=== PATIENT | female | born 1985 | race Caucasian/White ===

== ENCOUNTER 2017-11-29 09:46 | Outpatient (CLI) | payer OTHER ==
[2017-11-29 11:11] LABS: MEAN CORPUSCULAR HEMOGLOBIN 30.5 pg (27.0-31.0); MEAN CORPUSCULAR HGB CONC 34.6 g/dL (32.0-36.0); MEAN CORPUSCULAR VOLUME 88.1 fL (81.0-99.0); MEAN PLATELET VOLUME 8.6 fL (7.9-10.8); RED BLOOD COUNT 4.25 10^6/uL (4.20-5.40); RED CELL DISTRIBUTION WIDTH 13.9 % (12.0-15.0); WHITE BLOOD COUNT 7.7 x10^3/uL (4.8-10.8)
== END 2017-11-29 09:47 | disposition home or self-care (01) ==
LOC: LAB 09:46
PROVIDERS: ATTEND Nurse Practitioner Obstetrics & Gynecology
DX: Z36.9 Encounter for antenatal screening, unspecified (principal)
CPT/HCPCS: 36415; 82950; 86850

== ENCOUNTER 2018-01-10 08:00 | Outpatient (CLI) | payer OTHER | END 2018-01-10 08:01 | LOC: LAB.R 08:00 | PROVIDERS: ATTEND Registered Nurse | DX: Z34.83 Encounter for supervision of other normal pregnancy, third trimester (principal) | CPT/HCPCS: 87077; 87081 ==

== ENCOUNTER 2018-01-24 11:37 | Outpatient (CLI) | payer OTHER ==
[2018-01-24 12:19] LABS: BASOPHILS % (AUTO) 0.4 %; EOSINOPHILS # (AUTO) 0.2 10^3/uL (0.0-0.7); EOSINOPHILS % (AUTO) 2.2 %; HGB - HEMOGLOBIN 12.6 g/dL (12.0-16.0); LYMPHOCYTES # (AUTO) 1.4 10^3/uL (1.5-3.5); LYMPHOCYTES % (AUTO) 18.6 %; MEAN CORPUSCULAR HEMOGLOBIN 30.8 pg (27.0-31.0); MEAN CORPUSCULAR HGB CONC 34.5 g/dL (32.0-36.0); MEAN CORPUSCULAR VOLUME 89.5 fL (81.0-99.0); MONOCYTES # (AUTO) 0.6 10^3/uL (0.0-1.0); MONOCYTES % (AUTO) 7.6 %; NEUTROPHILS # (AUTO) 5.5 10^3/uL (1.5-6.6); NEUTROPHILS % (AUTO) 71.2 %; PLT - PLATELET COUNT 153 10^3/uL (130-450); RED BLOOD COUNT 4.08 10^6/uL (4.20-5.40); RED CELL DISTRIBUTION WIDTH 14.1 % (12.0-15.0); WHITE BLOOD COUNT 7.7 x10^3/uL (4.8-10.8)
[2018-01-24 12:23] LABS: CREATININE 0.6 mg/dL (0.4-1.0)
[2018-01-24 12:25] LABS: URIC ACID 3.5 mg/dL (2.6-7.2)
[2018-01-24 12:47] LABS: CREATININE,URINE 73.3 mg/dL; PROTEIN/CREATININE RATIO,URINE 0.1 (<=0.2)
[2018-01-24 16:04] VITALS: BP 93/71
== END 2018-01-24 12:55 | disposition home or self-care (01) ==
LOC: WFO 11:37 → FBP 11:38 → WFO 12:55
PROVIDERS: ATTEND Registered Nurse
DX: O16.3 Unspecified maternal hypertension, third trimester (principal); Z3A.37 37 weeks gestation of pregnancy
CPT/HCPCS: 36415; 59025; 82565; 82570; 83615; 84156; 84450; 84550; 85025

== ENCOUNTER 2018-02-04 00:42 | Outpatient (CLI) | payer OTHER ==
[2018-02-04 03:02] VITALS: BP 102/61
== END 2018-02-04 03:09 | disposition home or self-care (01) ==
LOC: WFO 00:42 → FBP 00:44 → WFO 03:09
PROVIDERS: ATTEND Registered Nurse
DX: O36.8130 Decreased fetal movements, third trimester, not applicable or unspecified (principal); Z3A.39 39 weeks gestation of pregnancy
CPT/HCPCS: 99213

== ENCOUNTER 2018-02-05 16:32 | Outpatient (CLI) | payer OTHER ==
[2018-02-05 17:18] VITALS: BP 113/79
[2018-02-05 17:40] LABS: RUPTURE OF MEMBRANES PLUS NEGATIVE (NEGATIVE)
== END 2018-02-05 18:15 | disposition home or self-care (01) ==
LOC: WFO 16:32 → FBP 16:34 → WFO 18:15
PROVIDERS: ATTEND Registered Nurse
DX: O47.1 False labor at or after 37 completed weeks of gestation (principal); Z3A.39 39 weeks gestation of pregnancy
CPT/HCPCS: 84112; 99213

== ENCOUNTER 2018-02-05 21:33 | Inpatient (IN) | payer OTHER ==
[2018-02-05] MEDS ORDERED: PENICILLIN G POTASSIUM 5,000,000 UNIT in SODIUM CHLORIDE 0.9% MINIBAG 100 ML IV ONE (21:54)
[2018-02-05] MEDS ORDERED: OXYTOCIN/SODIUM CHLORIDE 250 ML IV ONE (21:54)
[2018-02-05] MEDS ORDERED: ONDANSETRON 4 MG/2 ML VIAL IVP PRN (21:54)
[2018-02-05] MEDS ORDERED: SODIUM CHLORIDE FLUSH 0.9% 10 ML SYRINGE IVP PRN (21:54)
[2018-02-05] MEDS ORDERED: fentaNYL 100 MCG/2 ML VIAL IVP PRN (21:54)
[2018-02-05] MEDS ORDERED: LACTATED RINGERS 1,000 ML IV SCH (22:00)
[2018-02-05] MEDS ORDERED: LACTATED RINGERS 1,000 ML IV ONE (22:05)
[2018-02-05 22:18] LABS: BASOPHILS % (AUTO) 0.3 %; EOSINOPHILS # (AUTO) 0.2 10^3/uL (0.0-0.7); EOSINOPHILS % (AUTO) 1.8 %; HGB - HEMOGLOBIN 12.8 g/dL (12.0-16.0); LYMPHOCYTES # (AUTO) 1.4 10^3/uL (1.5-3.5); MEAN CORPUSCULAR HEMOGLOBIN 31.2 pg (27.0-31.0); MEAN CORPUSCULAR HGB CONC 34.7 g/dL (32.0-36.0); MEAN PLATELET VOLUME 8.7 fL (7.9-10.8); MONOCYTES # (AUTO) 0.6 10^3/uL (0.0-1.0); MONOCYTES % (AUTO) 6.7 %; NEUTROPHILS # (AUTO) 6.8 10^3/uL (1.5-6.6); NEUTROPHILS % (AUTO) 75.2 %; PLT - PLATELET COUNT 155 10^3/uL (130-450); RED BLOOD COUNT 4.09 10^6/uL (4.20-5.40); RED CELL DISTRIBUTION WIDTH 14.5 % (12.0-15.0)
[2018-02-06] MEDS ORDERED: SODIUM CHLORIDE FLUSH 0.9% 10 ML SYRINGE IVP SCH (01:00)
[2018-02-06] MEDS ORDERED: PENICILLIN G POTASSIUM 2,500,000 UNIT in SODIUM CHLORIDE 0.9% 100ML 100 ML IV SCH (02:00)
--- NOTE | 2018-02-06 03:38 | HISTORY & PHYSICAL EXAMINATION ---
Admit History - Instructions Elim Ira/Slash: -Left hand click circles element as positive or present. -Right hand click slashes element as negative or not present. - Visit Reason Visit Reason: Contractions (Elizabeth presented w/ complaint of onset of uterine contractions, much more intense than before ~ 2100.) - : 3 Parity: 2 Premature: 0 Ectopic: 0 : 0 Care: positive: [facility] (transfer of care @ 26 weeks' gestation), [facility] (until 26 weeks' gestation) Risk/History: positive: None Complications This : positive: None, Other (GBS positive on screening @ 36 weeks' gestation) Smoking Status: Never smoker - Mother's Labs Mother's Blood Type: positive: A Mother's RH: positive: Positive GBS: positive: Group B Strep Positive Rubella Status: positive: Immune Meds/Allgy - Home Medications Home Medications: Ambulatory Orders Medication Instructions Recorded Confirmed No Known Home Medications [No 05/29/16 05/29/16 Known Home Medications] - Allergies Allergies/Adverse Reactions: Allergies Allergy/AdvReac Type Severity Reaction Status Date / Time Sulfa (Sulfonamide Allergy Unknown Verified 05/29/16 11:09 Antibiotics) Review of Systems - Constitutional Constitutional: reports: Fatigue. denies: Fever, Chills - Cardiovascular Cariovascular: reports: Edema. denies: Irregular heart rate, Palpitations, Chest pain - Respiratory Respiratory: denies: Cough, Sputum production, SOB at rest, SOB with exertion - Gastrointestinal Gastrointestinal: reports: Abdominal pain. denies: Constipation, Diarrhea - Genitourinary Genitourinary: reports: Frequency, Urgency. denies: Dysuria, Hematuria - Musculoskeletal Musculoskeletal: reports: Back pain. denies: Muscle pain - Integumentary Integumentary: denies: Rash, Pruritis, Lesions - Neurological Neurological: denies: General weakness, Focal weakness, Headache, Dizziness, Numbness - Psychiatric Psychiatric: denies: Depression, Anxiety - All Other Systems All Other Systems: reports: Other (+ uterine contractions, +bloody show, no LOF , +FM) Physical - Abdominal Exam Vital Signs: Temp Pulse Resp BP Pulse Ox 36.9 C 107 H 20 123/68 99 02/06/18 02:00 02/06/18 02:00 02/06/18 02:00 02/06/18 02:00 02/05/18 22:00 Contraction Frequency (min/apart): 2-4 Contraction Intensity: positive: Moderate Uterine Resting Tone: positive: Soft - Monitoring Heart Rate Baseline: 135 Strip Review: positive: Category I - Presentation Presentation: positive: Vertex - Vaginal Exam Membranes: positive: Membranes intact Dilation (in cm): 5 Effacement (%): 90 Station: positive: -1 Cervical Position: positive: Midposition (per RN; BBOW) - Speculum Exam Speculum Exam Performed: positive: No Findings: negative: Gross leak - Other Notes Labor Progress Note/Additional Text: Elizabeth Salas is a 32 y/o who received care beginning in the first trimester @ [facility] x4 visits & transferred to [facility] for [facility] care @ 26 weeks' gestation x8 visits. Her course has been complicated by excess weight gain of 60#, breech presentation @ 36 weeks' w/ spontaneous version before scheduled ECV @ 37 weeks' gestation & GBS positive screening @ 36 weeks' gestation. She presents this evening w/ complaint of contractions, intermittent t/o the day, worse beginning @ 2100. +FM. +bloody show, no LOF. PMH: unremarkable PSH: R oopherectomy 2010, uncomplicated OBHx: x2, unmedicated, uncomplicated GYNHx: No hx abnl pap, no hx STI Soc Hx: to [place], no DV, SAHM, no tobacco/drugs/ETOH Allg: Sulfa PE: GEN: AAOx3, NAD WA gravid female HEENT: grossly normocephalic, atraumatic CHEST: Lungs b/l CTA t/o Heart: RRR nls1s2, no murmur Abd: gravid, NT : no lesion, no LOF MS: FROM t/o, no deformity; trace b/l pedal edema Neuro: no focal deficit Psych: normal mood & affect, pleasantly conversant Plan for Labor - Plan For Labor I expect patient to be DC'd or transferred within 96 hours.: Yes Plan for Labor: 1. admit 2. PCN for GBS prophylaxis 3. anticipate
[2018-02-06] MEDS ORDERED: LIDOCAINE 1% 50 ML MDV ONE (03:40)
--- NOTE | 2018-02-06 04:06 | DELIVERY NOTE ---
Delivery Note - Labor Labor: positive: Spontaneous - Delivery Method Delivery Method: positive: Spontaneous vaginal delivery - Presentation Presentation: positive: Vertex, EMILIO - right occiput anterior - Nuchal Cord Nuchal Cord: positive: Present (x2; loose; reduced prior to delivery of shoulders/body; trunk cord noted, reduced w/ placement onto maternal abd) - Anesthetic Anesthetic Type: - Amniotic Fluid Description Amniotic Fluid Description: positive: Clear (AROM @ 0350, for a total ruptured duration of 3 min) - Episiotomy Type Episiotomy Type: positive: None - Laceration Laceration: positive: None - Delivery Outcome Delivery Outcome: positive: Livebirth - [place] : positive: Placed in direct skin contact with mother, Stimulated, Warmed , [place] used sex: positive: Male - Cord Cord: positive: 3 vessels - Placenta Placenta: positive: Intact, Spontaneous - Estimated Blood Loss Estimated Blood Loss (in cc): 150 - Post Delivery Events Post Delivery Events: positive: No post delivery events - Delivery Comments (Free Text/Narrative) Delivery Comments (Free Text/Narrative): Elizabeth Salas is a 32 y/o [id number] who presented in spontaneous, active labor @ term. She was 5cm on arrival to the hospital @ 2230. She received 2 doses of IV PCN for GBS prophylaxis. She progressed spontaneously w/o intervention or medication other than PCN to complete dilatation @ 0350, for a total 1st stage duration of 5 hours, 20 min; she then underwent AROM for moderate CAF. She pushed w/ spontaneous urge x2 pushes to viable male in EMILIO position over an intact perineum @ 0353, for a total 2nd stage duration of 3 min. Nuchal cord x2 reduced easily prior to delivery of shoulders/body. Trunk cord noted & reduced prior to placement on maternal abd. Spontaneous, lusty cry. Placed to maternal abd for drying/stim. Delayed cord clamping until cessation of pulsation, then cord clamped x2 by CNM, cut by FOB. 3VC noted, cord blood obtained. AMTSL w/ Pitocin in IV fluids. Placenta del spont & intact, Cely , @ 0356, for a total 3rd stage duration of 3 min. FF @ U. Vagina & perineum inspected & found to be intact. Apgars 8/9; weight pending. Mother & stable; nuzzling @ breast w/in minutes of delivery, previously successful experiences x2. Plans to breastfeed.
[2018-02-06] MEDS ORDERED: HYDROCORTISONE/PRAMOXINE 10 GM PR PRN (04:12)
[2018-02-06] MEDS ORDERED: HYDROCORTISONE 1% CREAM 28 GM TUBE PR PRN (04:12)
[2018-02-06] MEDS ORDERED: OXYTOCIN/SODIUM CHLORIDE 250 ML IV ONE (04:12)
[2018-02-06] MEDS ORDERED: WITCH HAZEL/GLYCERIN 1 EACH MED..PAD TOP PRN (04:12)
[2018-02-06] MEDS: ACETAMINOPHEN 500 MG TABLET PO SCH ×2 (05:30→15:51)
[2018-02-06] MEDS: IBUPROFEN 800 MG TABLET PO SCH ×3 (05:31→18:28)
[2018-02-07] MEDS: ACETAMINOPHEN 500 MG TABLET PO SCH (05:30)
[2018-02-07] MEDS: IBUPROFEN 800 MG TABLET PO SCH (05:30)
[2018-02-07 08:37] VITALS: BP 116/70
--- NOTE | 2018-02-07 08:52 | Discharge Plan ---
Discharge Plan Disposition: 01 Home, Self Care Condition: Good Prescriptions: Ibuprofen [Motrin] 800 mg PO Q6H #30 tablet Diet: Regular Activity Restrictions: pelvic rest x6 weeks Shower Restrictions: No Driving Restrictions: No Weight Bearing: Full Weight Instruction Topics: Vaginal After, Breastfeed How To, Exercises Kegel Additional Instructions or Follow Up instructions: follow up x3 weeks w/ Davy Justin CNM No Smoking: If you smoke, Please STOP! Call for help. Follow-up with: Davy Justin CNM, CHRIS [Provider Admit Priv/Credential] -
--- NOTE | 2018-02-07 08:55 | DISCHARGE SUMMARY ---
"Discharge Summary Admit Date: 02/05/18 Discharge Date: 02/07/18 Discharging Provider: ALVARO Code Status: Attempt Resuscitation Condition at Discharge: Good Discharge Disposition: 01 Home, Self Care Discharge Facility Name: [facility] - DIAGNOSES Admission Diagnoses: ACTIVE LABOR @ TERM GBS POSITIVE Discharge Diagnoses with Status of Each Condition: - HPI History of Present Illness: CARLOS NOONAN IS A 32 Y/O [id number] WHO PRESENTED IN ACTIVE, SPONTANEOUS LABOR AT 39W5D. SHE PROGRESSED SPONTANEOUSLY W/O INTERVENTION OR MEDICATION & DELIVERED A VIABLE MALE VAGINALLY OVER AN INTACT PERINEUM W/O COMPLICATION. - CONSULTS | PROCEDURES Procedures: - HOSPITAL COURSE Hospital Course: , CARLOS IS AMBULATING & VOIDING W/O DIFFICULTY. SHE DENIES INCONTINENCE. SHE IS HAVING SOME CONSTIPATION. SHE IS PASSING FLATUS & TOLERATING A REGULAR DIET. SHE REPORTS MINIMAL LOCHIA RUBRA. SHE IS EXCLUSIVELY W/O DIFFICULTY & REPORTS 2 PREVIOUSLY SUCCESSFUL EXPERIENCES. HER PAIN IS WELL-CONTROLLED W/ NON-OPIOID ANALGESIA. SHE IS NOT PLANNING TO RETURN TO WORK. HER PARTNER WILL HAVE 3 WEEKS OFF TO ASSIST HER AT HOME & SHE REPORTS ADDITIONAL EXCELLENT SOCIAL SUPPORT. SHE DENIES HX OF PP DEPRESSION. SHE IS NOT PLANNING ANOTHER & IS CONSIDERING PARAGARD IUD INSERTION FOR PP CONTRACEPTION. SHE IS ABLE TO FULLY ARTICULATE PP WARNING S/SX, INCLUDING PP DEPRESSION S/SX, AND PP AFTERCARE INSTRUCTIONS. SHE IS READY TO LEAVE THE HOSPITAL. - ALLERGIES Allergies/Adverse Reactions: Allergies Allergy/AdvReac Type Severity Reaction Status Date / Time Sulfa (Sulfonamide Allergy Unknown Verified 05/29/16 11:09 Antibiotics) - MEDICATIONS Home Medications: Ambulatory Orders Medication Instructions Recorded Confirmed Ibuprofen [Motrin] 800 mg PO Q6H #30 tablet 02/07/18 - PHYSICAL EXAM AT DISCHARGE General Appearance: positive: No acute distress, Alert Eyes Bilateral: positive: Normal inspection Respiratory: positive: Chest non-tender, No respiratory distress, Breath sounds nml Cardiovascular: positive: Regular rate & rhythm, No murmur, No gallop Abdomen: positive: Non-tender, No distention, Other (FF U-2) Skin: positive: Color nml, No rash, Warm, Dry Extremities: positive: Non-tender, Full ROM, Nml appearance, No pedal edema. negative: Calf tenderness, Herrera's sign/cords Neurologic/Psychiatric: positive: Oriented x3, CN's nml (2-12), Motor nml, Sensation nml, Mood/affect nml Physical Exam Other/Comments: BREASTS B/L S, NT; NIPPLES B/L INTACT & EVERTED; COLOSTRUM READILY EXPRESSIBLE; PERINEUM INTACT W/O ERYTHEMA/EDEMA/ECCHYMOSIS; MINIMAL LOCHIA RUBRA - LABS Result Diagrams: 02/05/18 22:00 - FOLLOW UP Follow Up: X3 WEEKS IN OUTPT CLINIC W/ JEREL JOHN CNM, EARLIER PRN - TIME SPENT Time Spent in Discharge (Minutes): 20"
[2018-02-07] MEDS ORDERED: MAGNESIUM HYDROXIDE 2,400 MG/30 ML UDC PO PRN (08:59)
--- NOTE | 2018-02-07 17:40 | Labor Flowsheet ---
Labor Flowsheet Datetime Report Generated by CPN: 02/07/2018 17:39 Datetime: 02/07/2018 08:31 VITAL SIGNS NBP Sys/Tabatha/Mean (mmHg): 116 : 70 : 79 Pulse: 107 LaborFlag: Labor Datetime: 02/06/2018 19:54 SpO2 (%): 98 Datetime: 02/06/2018 03:53 Comments: of viable male Datetime: 02/06/2018 03:50 UTERINE ACTIVITY Monitor Mode: External Frequency (min): 1.5-3 Quality: Moderate Duration (sec): 50-60+ Pattern: Normal: <= 5 Contractions in 10 Minutes Resting Tone (Palpate): Relaxed ASSESSMENT A Monitor Mode: Telemetry FHR Baseline Rate : 130 FHR Baseline Changes: No Baseline Change Variability: Moderate 6-25 bpm Accelerations: 10X10 Decelerations: Variable (Annotations: mild variables to 115 x 10") Actions for Decelerations: provider aware and at bedside Category: Category II TEACHING Instructional Method: Verbal; Patient Instructed Plan of Care: Plan of Care Discussed; Labor Teaching Comments: Reviewed pushing techniques with CNM Milagrosa STAGE 2 Pushing: Coached on Pushing; Urge to Push Pushing Position: Pushing with Contractions Pushing Progress: Descent with Pushing Datetime: 02/06/2018 03:49 VAGINAL EXAM Dilatation (cm): 10.0 Effacement (%): 100 Station: 1 Exam by: CNM Fransiscoosa Datetime: 02/06/2018 03:48 Membrane Status: Ruptured Membranes Rupture Method: Artificial Amniotic Fluid Color: Clear Amniotic Fluid Amount: Small Amniotic Fluid Odor: Normal Datetime: 02/06/2018 03:43 Temperature (C): 36.6 PAIN Pain Scale: 8 Pain Presence: Intermittent Pain Type: Contraction; Pressure Pain Location: Abdomen; Back Pain Goal: 8 Pain Relief Measures: Comfort Measures Pain Coping: Breathing Through Contractions; Declines Medication or Epidural Pain Assessment Comments: Feeling urge to push; awaiting CNM Milagrosa Datetime: 02/06/2018 03:41 Communication Comments: CNM Milagrosa on L_D unit Datetime: 02/06/2018 03:30 Stage of : Labor Datetime: 02/06/2018 03:22 Provider Reviewed Strip: No COMMUNICATION Communication: Call/Page Placed to Provider Provider Notified (Name): CNM Milagrosa Notification Reason: Labor Status; Membrane Status Datetime: 02/06/2018 03:20 Vaginal Bleeding: None Cervix, Consistency: Soft Cervix, Position: Anterior Datetime: 02/06/2018 03:02 Patient Position/Activity: Left Tilt Datetime: 02/06/2018 02:15 MEDICATIONS Antibiotics: Penicillin IV (Units) @ 2.5M Datetime: 02/06/2018 02:09 Respirations: 20 Temperature Route: Oral Datetime: 02/06/2018 01:03 Patient Care Comments: back to bed per pt preference Datetime: 02/06/2018 01:00 I/O Interventions: Up to BR (Annotations: voided 300 clear lt yellow urine) Datetime: 02/06/2018 00:26 Comfort Measures: Breathing/Relaxation; Coaching; Back Rub Given; Family Support Datetime: 02/06/2018 00:00 Vital Sign Comments: in jacuzzi Datetime: 02/05/2018 23:20 PATIENT CARE Oxygen Method: Room Air Datetime: 02/05/2018 23:01 Monitor Interventions for FHR: Ultrasound Adjusted
== END 2018-02-07 11:30 | disposition home or self-care (01) | DRG 775 ==
LOC: WFO 21:33 → FBP 21:38 → WFO 21:53 → FBP 21:54
PROVIDERS: ADMIT Registered Nurse; ATTEND Registered Nurse
PROC: 10E0XZZ Delivery of Products of Conception, External Approach (ICD-10-PCS; principal; 2018-02-06)
PROC: 10907ZC Drainage of Amniotic Fluid, Therapeutic from Products of Conception, Via Natural or Artificial Opening (ICD-10-PCS; 2018-02-06)
DX: O99.824 Streptococcus B carrier state complicating childbirth (principal); O69.81X0 Labor and delivery complicated by cord around neck, without compression, not applicable or unspecified; Z37.0 Single live birth; Z3A.39 39 weeks gestation of pregnancy
CPT/HCPCS: 84112; 85025; 99213

== ENCOUNTER 2018-02-20 12:02 | Outpatient (CLI) | payer OTHER | END 2018-02-20 12:03 | disposition home or self-care (01) | LOC: LAB.R 12:02 | PROVIDERS: ATTEND Registered Nurse | DX: R10.9 Unspecified abdominal pain (principal) | CPT/HCPCS: 87086 ==

== ENCOUNTER 2018-02-20 12:17 | Outpatient (CLI) | payer OTHER ==
[2018-02-20 12:37] LABS: BASOPHILS % (AUTO) 0.2 %; EOSINOPHILS % (AUTO) 0.1 %; HGB - HEMOGLOBIN 14.5 g/dL (12.0-16.0); LYMPHOCYTES # (AUTO) 0.4 10^3/uL (1.5-3.5); LYMPHOCYTES % (AUTO) 2.4 %; MEAN CORPUSCULAR HEMOGLOBIN 30.8 pg (27.0-31.0); MEAN CORPUSCULAR HGB CONC 33.7 g/dL (32.0-36.0); MEAN CORPUSCULAR VOLUME 91.3 fL (81.0-99.0); MEAN PLATELET VOLUME 8.3 fL (7.9-10.8); MONOCYTES # (AUTO) 0.6 10^3/uL (0.0-1.0); MONOCYTES % (AUTO) 3.3 %; NEUTROPHILS # (AUTO) 17.6 10^3/uL (1.5-6.6); PLT - PLATELET COUNT 214 10^3/uL (130-450); RED BLOOD COUNT 4.71 10^6/uL (4.20-5.40); WHITE BLOOD COUNT 18.7 x10^3/uL (4.8-10.8)
== END 2018-02-20 12:18 | disposition home or self-care (01) ==
LOC: LAB 12:17
PROVIDERS: ATTEND Registered Nurse
DX: R10.9 Unspecified abdominal pain (principal)
CPT/HCPCS: 36415; 85025; 87086

== ENCOUNTER 2018-04-05 10:18 | Outpatient (CLI) | payer OTHER | END 2018-04-05 10:19 | disposition home or self-care (01) | LOC: LAB 10:18 | PROVIDERS: ATTEND Registered Nurse | DX: Z01.419 Encounter for gynecological examination (general) (routine) without abnormal findings (principal) | CPT/HCPCS: 36415; 84443 ==

== ENCOUNTER 2018-08-09 11:34 | Outpatient (CLI) | payer OTHER ==
[2018-08-09 19:16] LABS: BASOPHILS # (AUTO) 0.1 10^3/uL (0.0-0.1); BASOPHILS % (AUTO) 0.8 %; EOSINOPHILS # (AUTO) 0.4 10^3/uL (0.0-0.7); EOSINOPHILS % (AUTO) 6.8 %; HGB - HEMOGLOBIN 12.9 g/dL (12.0-16.0); LYMPHOCYTES # (AUTO) 1.7 10^3/uL (1.5-3.5); MEAN CORPUSCULAR HEMOGLOBIN 28.7 pg (27.0-31.0); MEAN CORPUSCULAR HGB CONC 33.5 g/dL (32.0-36.0); MEAN CORPUSCULAR VOLUME 85.6 fL (81.0-99.0); MEAN PLATELET VOLUME 9.4 fL (7.9-10.8); MONOCYTES # (AUTO) 0.5 10^3/uL (0.0-1.0); NEUTROPHILS # (AUTO) 3.6 10^3/uL (1.5-6.6); NEUTROPHILS % (AUTO) 57.4 %; PLT - PLATELET COUNT 255 10^3/uL (130-450); RED BLOOD COUNT 4.49 10^6/uL (4.20-5.40); RED CELL DISTRIBUTION WIDTH 11.7 % (12.0-15.0); WHITE BLOOD COUNT 6.2 x10^3/uL (4.8-10.8)
[2018-08-09 19:19] LABS: RHEUMATOID FACTOR NEGATIVE (Negative)
[2018-08-09 19:33] LABS: ALBUMIN 3.7 g/dL (3.2-5.5); ALKALINE PHOSPHATASE 90 IU/L (42-121); ALT ALANINE AMINOTRANSFERASE 14 IU/L (10-60); AST ASPARTATE AMINOTRANSFERASE 20 IU/L (10-42); BILIRUBIN,TOTAL 0.5 mg/dL (0.2-1.0); BUN - BLOOD UREA NITROGEN 9 mg/dL (6-20); CARBON DIOXIDE - CO2 24 mmol/L (21-32); CHLORIDE 106 mmol/L (101-111); CREATININE 0.6 mg/dL (0.4-1.0); GFR - MDRD 116 (>89); GLUCOSE 90 mg/dL (70-100); SODIUM 138 mmol/L (135-145); TOTAL PROTEIN 7.4 g/dL (6.7-8.2); URIC ACID 4.5 mg/dL (2.6-7.2)
[2018-08-09 19:56] LABS: CRP - C-REACTIVE PROTEIN < 1.0 mg/dL (0-1.0)
[2018-08-11 14:02] LABS: ANA SCREEN NEGATIVE (NEGATIVE)
== END 2018-08-09 23:59 | disposition home or self-care (01) ==
LOC: LAB.WCP 11:34
PROVIDERS: ATTEND Internal Medicine Rheumatology
DX: M06.4 Inflammatory polyarthropathy (principal)
CPT/HCPCS: 36415; 80053; 84550; 85025; 85651; 86038; 86140; 86200; 86430

== ENCOUNTER 2018-08-29 11:41 | Outpatient (CLI) | payer OTHER ==
--- NOTE | 2018-08-30 10:17 | XRAY Report ---
Reason: PAIN IN UNSPECIFIED JOINT Procedure Date: 08/29/2018 Accession Number: [id number] / [id number] Procedure: XRN - Knee 2 View BILAT CPT Code: FULL RESULT: EXAMS: 1. Right Knee Radiography 2. Left Knee Radiography EXAM DATE:08/29/2018 12:09 PM. CLINICAL HISTORY:Pain in unspecified joint. COMPARISON: None. TECHNIQUE: 2 views each. FINDINGS: Right Knee: Bones: Normal. No fractures or bone lesions. Joints: Normal alignment. Small suprapatellar effusion. Soft Tissues: Normal. No soft tissue swelling. Left Knee: Bones: Normal. No fractures or bone lesions. Joints: Normal alignment. Small suprapatellar effusion. Soft Tissues: Normal. No soft tissue swelling. IMPRESSION: Small bilateral suprapatellar effusions. No acute bony abnormality. RADIA
--- NOTE | 2018-08-30 10:42 | XRAY Report ---
Reason: PAIN IN UNSPECIFIED JOINT Procedure Date: 08/29/2018 Accession Number: [id number] / [id number] Procedure: XRN - Elbow 2 View LT CPT Code: FULL RESULT: EXAM: LEFT ELBOW RADIOGRAPHY EXAM DATE: 08/29/2018 12:07 PM. CLINICAL HISTORY: Pain in unspecified joint. COMPARISON: None. TECHNIQUE: 3 views. FINDINGS: Bones: Normal. No fractures or bone lesions. Joints: Normal. No effusion. No subluxation. Soft Tissues: Normal. No soft tissue swelling. IMPRESSION: Normal elbow radiography. RADIA
--- NOTE | 2018-08-30 10:46 | XRAY Report ---
Reason: PAIN IN UNSPECIFIED JOINT Procedure Date: 08/29/2018 Accession Number: [id number] / [id number] Procedure: XRN - Hand 2 View BILAT CPT Code: FULL RESULT: EXAMS: 1. Right Hand Radiography 2. Left Hand Radiography EXAM DATE: 08/29/2018 11:54 AM. CLINICAL HISTORY: Pain in unspecified joint. COMPARISON: HAND 2 VIEW BILAT 04/06/2016 10:36 AM. TECHNIQUE: 2 views each hand. FINDINGS: Right: Bones: Normal. No fractures or bone lesions. Joints: Normal. No subluxations. Soft Tissues: Normal. No soft tissue swelling. Left: Bones: Normal. No fractures or bone lesions. Joints: Normal. No subluxations. Soft Tissues: Normal. No soft tissue swelling. IMPRESSION: Normal bilateral hand radiography. RADIA
== END 2018-08-29 11:42 | disposition home or self-care (01) ==
LOC: DI.N 11:41
PROVIDERS: ATTEND Internal Medicine Rheumatology
DX: M25.50 Pain in unspecified joint (principal); M25.462 Effusion, left knee; M25.461 Effusion, right knee
CPT/HCPCS: 73565